=== PATIENT | female | born 1980 | race Caucasian/White ===

== ENCOUNTER 2021-08-30 16:23 | Emergency (ER) | payer MEDICAID, OTHER ==
[~2021-08-30] VITALS: Ht 172.7 cm; Wt 99.8 kg
[~2021-08-30 16:23] MED LIST: HYDR50TA61 PO; METH4TAB17 PO; PERM60CR18
[2021-08-30 16:27] VITALS: BP_SYST 185
--- NOTE | 2021-08-30 16:38 | NUR ---
Patient to ER bed 7 to gown for evaluation. Side rails up. Report given to Almaz KIM.
[2021-08-30] MEDS ORDERED: amLODIPine BESYLATE 10 MG TABLET PO ONE (17:00)
[2021-08-30] MEDS ORDERED: KETOROLAC TROMETHAMINE 60 MG/2 ML VIAL IM ONE (17:00)
[2021-08-30 17:43] LABS: BASOPHILS # (AUTO) 0.1 K/uL (0.0-0.2); BASOPHILS % (AUTO) 0.7 % (0.0-2.0); EOSINOPHILS # (AUTO) 0.7 K/uL (0.0-0.4); EOSINOPHILS % (AUTO) 6.5 % (0.0-4.0); HEMATOCRIT 37.2 % (36-48); HEMOGLOBIN 11.9 g/dL (12.0-16.0); LYMPHOCYTES # (AUTO) 2.5 K/uL (1.0-5.5); LYMPHOCYTES % (AUTO) 24.3 % (20.5-51.5); MEAN CORPUSCULAR HEMOGLOBIN 23 pg (27-31); MEAN CORPUSCULAR HGB CONC 32 % (32-36); MEAN CORPUSCULAR VOLUME 74 fL (79.0-98.0); MONOCYTES # (AUTO) 0.5 K/uL (0.0-1.0); NEUTROPHILS # (AUTO) 6.5 K/uL (1.8-7.7); NEUTROPHILS % (AUTO) 63.5 % (40.0-70.0); PLATELET COUNT (AUTO) 368 K/uL (130-430); RED BLOOD CELL COUNT(AUTO) 5.06 MIL/uL (4.2-6.2); RED CELL DISTRIBUTION WIDTH 16.4 % (9.0-15.0); WHITE BLOOD COUNT (AUTO) 10.2 K/uL (4.8-10.8)
[2021-08-30 17:49] LABS: ANION GAP 8 (5-15); CALCIUM 8.2 mg/dL (8.4-11.0); CHLORIDE 100 mmol/L (98-107); CREATININE 1.16 mg/dL (0.55-1.30); GLUCOSE 118 mg/dL (70-99); POTASSIUM 4.1 mmol/L (3.5-5.1); SODIUM SERUM 132 mmol/L (136-145); UREA NITROGEN, BLOOD 12 mg/dL (8-21)
--- NOTE | 2021-08-30 17:51 | NUR ---
Urine test done by ED RN
--- NOTE | 2021-08-30 17:51 | NUR ---
Pt seen by ED physician
[2021-08-30 17:53] LABS: GFR AFRICAN AMERICAN 66 mL/min (>90)
[2021-08-30 18:03] LABS: ALANINE AMINOTRANSFERASE 21 U/L (12-78); ALBUMIN 3.4 g/dL (3.4-4.8); ASPARTATE AMINOTRANSFERASE 19 U/L (10-37); TOTAL BILIRUBIN 0.1 mg/dL (0.0-1.0)
--- NOTE | 2021-08-30 19:27 | NUR ---
Care transferred over to Alanna RN at this time. Pt in odilon cute distress Aox4 GCS 15.
[2021-08-30] MEDS ORDERED: LIDO1ADH77 TD (19:39)
[2021-08-30] MEDS ORDERED: LISI1TAB57 PO (19:39)
[2021-08-30] MEDS ORDERED: IBUP-1969 PO (19:39)
[2021-08-30 19:52] VITALS: BP_SYST 162
--- NOTE | 2021-08-30 19:54 | NUR ---
Pt discharged home, accompanied by . All homecare and medication instructions explained to pt. Pt verbalized understanding. All belongings with pt.
== END 2021-08-30 19:54 | disposition home or self-care (01) ==
LOC: SED 16:23
DX: R07.81 Pleurodynia (principal); I95.9 Hypotension, unspecified; F17.200 Nicotine dependence, unspecified, uncomplicated; Z71.6 Tobacco abuse counseling; Z88.2 Allergy status to sulfonamides
CPT/HCPCS: 36415; 71045; 80053; 81025; 83880; 84484; 85025; 85379; 93005; 96372; 99285; J1885